=== PATIENT | male | born 1960 | race African-American/Black ===

== ENCOUNTER → 2022-01-29 | Outpatient (CLI) | payer OTHER ==
[2022-01-29 18:15] LABS: Basophils # (A) 0.04 X 10*3/uL (0.00-0.10); Basophils % (A) 0.6 %; Eosinophils # (A) 0.13 X 10*3/uL (0.04-0.35); HCT 45.7 % (39.6-50.0); HGB 14.6 g/dL (13.0-17.0); Immature Grans, Automated 0.3 %; Lymphocytes # (A) 3.21 X 10*3/uL (0.90-5.00); Lymphocytes % (A) 49.5 %; MCH 27.8 pg (27.0-32.0); MCHC 31.9 g/dL (32.0-37.0); MCV 86.9 fL (80.0-97.0); Monocytes # (A) 0.53 X 10*3/uL (0.20-1.00); Monocytes % (A) 8.2 %; NRBC Per 100 WBC 0 /100 WBCS (0.0-0.0); Neutrophils # (A) 2.55 X 10*3/uL (1.80-7.70); Neutrophils % (A) 39.4 %; Platelet Count 262 X 10*3/uL (140-440); RBC 5.26 X 10*6/uL (4.40-5.60); RDW 13.7 % (11.5-14.5); WBC 6.48 X 10*3/uL (4.50-10.00)
[2022-01-29 18:35] LABS: Chol/HDL Ratio 3.04 Ratio; Globulin 4.1 g/dL (1.6-3.3); LDL Cholesterol,Calculated 55.8 mg/dL (0.0-131.0); VLDL Calculation 16.04 mg/dL (5.00-40.00)
[2022-01-29 18:36] LABS: ALT 24 U/L (10-49); AST 16 U/L (14-35); African American GFR (CKD) 94.4 (60.0-200.0); Albumin 4.2 g/dL (3.8-4.9); Alkaline Phosphatase 72 U/L (41-126); Blood Urea Nitrogen 10.8 mg/dL (9.0-27.0); Chloride 102 mmol/L (96-109); Glucose 85 mg/dL (70-110); Non-African American GFR(CKD) 81.4 (60.0-200.0); Sodium 139 mmol/L (135-145); Total Protein 8.3 g/dL (6.2-8.2)
== END | disposition home or self-care (01) ==
LOC: LABWHC1 13:09
PROVIDERS: ATTEND Family Medicine
DX: Z00.01 Encounter for general adult medical examination with abnormal findings (principal); Z12.5 Encounter for screening for malignant neoplasm of prostate; Z68.41 Body mass index [BMI] 40.0-44.9, adult
CPT/HCPCS: 36415; 80053; 80061; 82306; 83036; 83525; 84153; 84439; 84443; 85025

== ENCOUNTER 2022-05-26 09:49 | Day surgery (SDC) | payer OTHER ==
[~2022-05-26 09:49] MED LIST: LACTATED RINGERS 1,000 ML IV SCH
[2022-05-26 10:30] VITALS: TEMP 96.9
[2022-05-26] MEDS ORDERED: PROPOFOL 10 MG/ML 20 ML VIAL IV ONE (11:01)
--- NOTE | 2022-05-26 11:15 | P.PCN ---
Date of Procedure: 05/26/22 Procedure(s) Performed: BRIEF HISTORY: Patient is a 61-year-old [place] scheduled for an elective colonoscopy as a part of screening for colon cancer. PROCEDURE PERFORMED: Colonoscopy. PREOPERATIVE DIAGNOSIS: Screening for colon cancer. IV sedation per Anesthesia. PROCEDURE: After informed consent was obtained, the patient, was brought into the endoscopy unit. IV sedation was administered by Anesthesia under continuous monitoring. Digital rectal examination was normal. Initially the Olympus CF-160 flexible video colonoscope was then inserted in the rectum, gradually advanced into the cecum without any difficulty. Careful examination was performed as the scope was gradually being withdrawn. Ileocecal valve and the appendiceal orifice were visualized and appeared normal. Prep was fair.. Mucosa of the cecum, ascending colon, transverse colon, descending colon, sigmoid colon, and rectum appeared normal. Retroflexion was performed in the rectum and no lesions were seen. The patient tolerated the procedure well. IMPRESSION: Normal-appearing colon from rectum to cecum with no evidence of colorectal neoplasia Scattered sigmoid diverticulosis. RECOMMENDATIONS: Findings of this examination were discussed with the patient as well as her family. He was advised to have a repeat screening colonoscopy in 10 years..
[2022-05-26 11:37] VITALS: BP 128/83; PULSE 76; RESP 16
== END 2022-05-26 11:55 | disposition home or self-care (01) ==
LOC: ORWHC2ENDO 09:49
PROVIDERS: ATTEND Internal Medicine Gastroenterology
DX: Z12.11 Encounter for screening for malignant neoplasm of colon (principal); K57.30 Diverticulosis of large intestine without perforation or abscess without bleeding
CPT/HCPCS: 45378; J2704

== ENCOUNTER → 2022-06-17 | Outpatient (CLI) | payer OTHER ==
[~2022-06-17] MED LIST changes: -LACTATED RINGERS 1,000 ML IV SCH; +REGADENOSON 0.4 MG/5 ML SYRINGE IV PRN
--- NOTE | 2022-06-17 12:32 | CA ---
Lexiscan Nuclear Stress Test Report Name: Abdias Jaramillo Exam Date: 06/17/2022 10:27 Exam Location: [facility] Ht (in): 66 Wt (lb): 250 BSA: 2.20 Ordering Phys: Doug Hyatt MD Referring Phys: Candy Lee Technologist: Jose Johns Age: 61 Gender: M : 1960 Procedure CPT: Indications: I25.10 ashd ICD-10 Codes: Patient History: Family history of heart disease Medications: Meds past 24 hrs: Pretest Chest Pain: STRESS TEST Lexiscan Protocol Exercise Duration (min:sec): 02:[address] Depressions (mm): Angina Score: Richmond Score: Resting HR (bpm): 62 Peak HR (bpm): 105 Resting BP (mmHg): 106 / 73 Peak BP (mmHg): 136 / 78 MPHR: 160 Target HR: 136 % MPHR: 66 METS: 1.0 Total Dose: Peak Dose: Atropine: Double Product: 85397 BP Response: Stress Termination: Infusion complete Stress Symptoms: No chest pain or symptoms Stress Summary: ECG ANALYSIS Resting ECG: Stress ECG: CONCLUSIONS At baseline EKG showed normal sinus rhythm, normal axis, no significant ST or T wave abnormalities. Patient recieved IV infusion of Lexiscan 0.4mg and at peak infusion EKG showed no significant change from baseline. Conclusions: 1. Normal EKG response to Lexiscan infusion 2. Nuclear imaging to be reported separately. Dr. Andi West DO (Electronically Signed) Final Date: 17 June 2022 12:31
--- NOTE | 2022-06-17 13:29 | NM ---
EXAMINATION TYPE: NM stress lexiscan cardiolite DATE OF EXAM: 06/17/2022 COMPARISON: NONE HISTORY: 61-year-old male I 25.10, ASHD, abnormal CT scan. TECHNIQUE: After the intravenous administration of 9.3 mCi Tc 99m Sestamibi - Cardiolite resting SPE CT images acquired 45 minutes post injection. The patient received 0.4mg Lexiscan, 24.5 mCi Tc 99m Sestamibi - Stress images obtained [address] injection FINDINGS: Review of stress and rest SPECT images demonstrates extensive adjacent GI activity. There appear to b e prominent areas of defects more so on the rest images suggesting extensive attenuation artifact. Ho wever, this pattern appears to reverse along the mid anterolateral wall and there is corresponding de fect on the polar maps. Gated analysis shows possible dyskinesis in this region and an estimated left ventricular ejection fraction of 51 %. TID is normal at 0.89. IMPRESSION: 1. Extensive attenuation artifacts limiting the evaluation. However, findings are suspicious for foca l inducible ischemia involving the mid anterolateral wall. There appears to be focal dyskinesia along this region as well. 2. Estimated LVEF borderline to mildly diminished at 51%. Further workup as clinically indicated.
== END | disposition home or self-care (01) ==
LOC: RADNMMAIN 08:44
PROVIDERS: ATTEND Family Medicine
DX: I25.10 Atherosclerotic heart disease of native coronary artery without angina pectoris (principal)
CPT/HCPCS: 93017; 78452; A9500; J2785

== ENCOUNTER → 2022-09-07 | Outpatient (CLI) | payer OTHER ==
[2022-09-07 22:26] LABS: HGB 15.4 g/dL (13.0-17.0); MCH 28.5 pg (27.0-32.0); MCHC 32.1 g/dL (32.0-37.0); MCV 88.7 fL (80.0-97.0); Mean Platelet Volume 11.4 fL (9.5-12.2); NRBC Per 100 WBC 0 /100 WBCS (0.0-0.0); Platelet Count 245 X 10*3/uL (140-440); RBC 5.41 X 10*6/uL (4.40-5.60); RDW 14.6 % (11.5-14.5); WBC 6.45 X 10*3/uL (4.50-10.00)
[2022-09-07 22:52] LABS: African American GFR (CKD) 83.2 (60.0-200.0); Anion Gap 9.9 mmol/L (10.00-18.00); BUN/Creat Ratio 9.37 Ratio (12.00-20.00); Blood Urea Nitrogen 10.4 mg/dL (9.0-27.0); Calcium 9.5 mg/dL (8.7-10.3); Carbon Dioxide 29.6 mmol/L (20.0-27.5); Non-African American GFR(CKD) 71.8 (60.0-200.0); Potassium 4.3 mmol/L (3.5-5.5)
== END | disposition home or self-care (01) ==
LOC: LABWHC1 14:30
PROVIDERS: ATTEND Internal Medicine Interventional Cardiology
DX: I25.10 Atherosclerotic heart disease of native coronary artery without angina pectoris (principal)
CPT/HCPCS: 36415; 80048; 85027

== ENCOUNTER → 2023-07-16 | Outpatient (CLI) | payer OTHER ==
--- NOTE | 2023-07-16 17:21 | US ---
EXAMINATION TYPE: US venous doppler duplex LE LT DATE OF EXAM: 07/16/2023 4:34 PM COMPARISON: NONE CLINICAL INDICATION: Male, 62 years old with history of R22.42 SWELLING,MASS,LUMP; Swelling to left l eg, left GSV stripped SIDE PERFORMED: Left TECHNIQUE: The lower extremity deep venous system is examined utilizing real time linear array sonog rafael with graded compression, doppler sonography and color-flow sonography. VESSELS IMAGED: Common Femoral Vein Deep Femoral Vein Femoral Vein Popliteal Vein Small Saphenous Vein * Proximal Calf Veins (* superficial vessels) Left Leg: Negative for DVT IMPRESSION: Grayscale, color doppler, spectral doppler imaging performed of the deep veins of the lo wer extremities. There is normal flow, compressibility, vascular waveforms.
== END | disposition home or self-care (01) ==
LOC: RADUSWWP 16:15
PROVIDERS: ATTEND Family Medicine
DX: R22.42 Localized swelling, mass and lump, left lower limb (principal)

== ENCOUNTER → 2024-01-05 | Outpatient (CLI) | payer OTHER ==
[2024-01-05 19:15] LABS: ALT 30 U/L (10-49); AST 19 U/L (14-35); Albumin 4.3 g/dL (3.8-4.9); Albumin/Globulin Ratio 1.23 Ratio (1.60-3.17); Alkaline Phosphatase 99 U/L (41-126); BUN/Creat Ratio 8.45 Ratio (12.00-20.00); Blood Urea Nitrogen 9.3 mg/dL (9.0-27.0); Calcium 9.1 mg/dL (8.7-10.3); Carbon Dioxide 25.4 mmol/L (21.6-31.8); Chloride 102 mmol/L (96-109); Globulin 3.5 g/dL (1.6-3.3); Glucose 76 mg/dL (70-110); LDL Cholesterol,Calculated 29.3 mg/dL (0.0-131.0); Potassium 4.1 mmol/L (3.5-5.5); Sodium 140 mmol/L (135-145); Total Bilirubin 0.5 mg/dL (0.3-1.2); Total Protein 7.8 g/dL (6.2-8.2)
== END | disposition home or self-care (01) ==
LOC: LABWHC1 11:56
PROVIDERS: ATTEND Family Medicine
DX: I25.810 Atherosclerosis of coronary artery bypass graft(s) without angina pectoris (principal)
CPT/HCPCS: 36415; 80053; 80061

== ENCOUNTER → 2024-08-05 | Outpatient (CLI) | payer OTHER ==
[2024-08-05 13:22] LABS: Basophils # (A) 0.04 X 10*3/uL (0.00-0.10); Basophils % (A) 0.6 %; Eosinophils # (A) 0.13 X 10*3/uL (0.04-0.35); Eosinophils % (A) 2.1 %; HCT 47.1 % (39.6-50.0); HGB 15.6 g/dL (13.0-17.0); Lymphocytes # (A) 2.55 X 10*3/uL (0.90-5.00); Lymphocytes % (A) 41.1 %; MCH 28.3 pg (27.0-32.0); MCHC 33.1 g/dL (32.0-37.0); MCV 85.3 FL (80.0-97.0); Mean Platelet Volume 10.9 FL (9.5-12.2); Monocytes # (A) 0.68 X 10*3/uL (0.20-1.00); NRBC Per 100 WBC 0 X 10*3/uL (0.00-0.01); Platelet Count 228 X 10*3/uL (140-440); RBC 5.52 X 10*6/uL (4.40-5.60); RDW 14.1 % (11.5-14.5); WBC 6.21 X 10*3/uL (4.50-10.00)
[2024-08-05 14:28] LABS: ALT 40 U/L (10-49); AST 20 U/L (14-35); Albumin 4.1 g/dL (3.8-4.9); Albumin/Globulin Ratio 1.21 Ratio (1.60-3.17); Alkaline Phosphatase 106 U/L (41-126); BUN/Creat Ratio 9.55 Ratio (12.00-20.00); Blood Urea Nitrogen 10.5 mg/dL (9.0-27.0); Calcium 9.1 mg/dL (8.7-10.3); Chloride 100 mmol/L (96-109); Chol/HDL Ratio 2.21 Ratio; Globulin 3.4 g/dL (1.6-3.3); Glucose 92 mg/dL (70-110); LDL Cholesterol,Calculated 29.3 mg/dL (0.0-131.0); Sodium 139 mmol/L (135-145); Total Bilirubin 0.4 mg/dL (0.3-1.2); Total Protein 7.5 g/dL (6.2-8.2)
== END | disposition home or self-care (01) ==
LOC: LABWHC1 09:44
PROVIDERS: ATTEND Family Medicine
DX: I25.810 Atherosclerosis of coronary artery bypass graft(s) without angina pectoris (principal); E11.9 Type 2 diabetes mellitus without complications
CPT/HCPCS: 36415; 80053; 80061; 83036; 84153; 85025

== ENCOUNTER → 2024-11-25 | Outpatient (CLI) | payer OTHER ==
[2024-11-26 01:04] LABS: ALT 39 U/L (10-49); AST 20 U/L (14-35); Albumin/Globulin Ratio 1.21 Ratio (1.60-3.17); Alkaline Phosphatase 102 U/L (41-126); BUN/Creat Ratio 8.82 Ratio (12.00-20.00); Blood Urea Nitrogen 9.7 mg/dL (9.0-27.0); Calcium 8.8 mg/dL (8.7-10.3); Carbon Dioxide 22.8 mmol/L (21.6-31.8); Chloride 104 mmol/L (96-109); Chol/HDL Ratio 2.42 Ratio; Globulin 3.3 g/dL (1.6-3.3); Glucose 91 mg/dL (70-110); Potassium 4.2 mmol/L (3.5-5.5); Sodium 139 mmol/L (135-145); Total Bilirubin 0.4 mg/dL (0.3-1.2); Total Protein 7.3 g/dL (6.2-8.2); VLDL Calculation 14.06 mg/dL (5.00-40.00)
== END | disposition home or self-care (01) ==
LOC: LABWHC1 10:15
PROVIDERS: ATTEND Family Medicine
DX: E11.9 Type 2 diabetes mellitus without complications (principal); I25.810 Atherosclerosis of coronary artery bypass graft(s) without angina pectoris
CPT/HCPCS: 36415; 80053; 80061; 83036